=== PATIENT | female | born 1955 | race African-American/Black ===

== ENCOUNTER 2020-10-18 15:43 | Emergency (ER) | payer MEDICAID, SELFPAY ==
[2020-10-18 15:45] VITALS: BP 121/63; PULSE 85; RESP 16; TEMP 37; O2SAT 98; BMI 22.1
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
--- NOTE | 2020-10-18 16:45 | NURSING ---
DR RENTERIA CALLED [facility], CAN'T ACCEPT PATIENT CALLED [facility], TALKED TO MARIN.
--- NOTE | 2020-10-18 16:52 | ED.RN ---
LEFT A MESSAGE FOR [employer] DAPHNE
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
--- NOTE | 2020-10-18 17:05 | EKG12_ITS ---
Test Reason : PRE-OP Blood Pressure : / mmHG Vent. Rate : 073 BPM Atrial Rate : 073 BPM P-R Int : 144 ms QRS Dur : 084 ms QT Int : 386 ms P-R-T Axes : 071 055 074 degrees QTc Int : 425 ms Normal sinus rhythm Normal ECG Confirmed by SAIDA BHAT, JAKE ([id number]), editor newspaper HANNA CRUZ ([id number]) on 10/20/2020 12:37:04 PM Referred By: MARILEE Confirmed By:JAKE CINTRON MD
--- NOTE | 2020-10-18 17:05 | NURSING ---
CALLED [facility], ETA IS 30 MIN
--- NOTE | 2020-10-18 17:06 | ED.RN ---
Addendum entered by Darrick Hughes 10/18/20 17:08: Consent received fro Horace Titus. Original Note: Dr Everett spoke with patients POA and updated on patients condition and transfer to [facility].
[2020-10-18] MEDS: Diphth,Pertuss(Acell),Tet Vac 0.5 ML Vial IM (17:22)
[2020-10-18 17:26] VITALS: BP 145/81; PULSE 75; RESP 16; TEMP 36.5; O2SAT 99
[2020-10-18 17:35] LABS: Absolute Lymphocyte Count 2.38 X10^3/uL (0.83-4.51); Absolute Neutrophil Count 4.3 X10^3/uL (2.0-7.7); Basophil# 0.02 X10^3/uL; Basophil% 0.3 % (0-1); Eosinophil# 0.05 X10^3/uL; Eosinophils% 0.7 % (0-5); Hematocrit 37.6 % (37-47); Hemoglobin 11.9 g/dL (12.0-15.0); Lymphocyte # 2.38 X10^3/ul (0.83-4.51); Mean Corp Hgb Conc 31.6 g/dL (32-36); Mean Corpuscular Hgb 31.1 pg (27.0-32.0); Mean Corpuscular Volume 98.2 fL (81-99); Mean Platelet Vol. 9.6 fl (6.2-12.0); Monocyte# 0.94 X10^3/uL; Monocyte% 12.3 % (0-10); NRBC Flagged by Analyzer 0 % (0-5); Neutrophil # 4.26 X10^3/uL (2.7-7.7); Neutrophil % 55.4 % (47-70); Platelet Count 181 K/mm3 (150-450); RBC Distribution Width CV 14.2 % (11.6-14.6); RBC Distribution Width SD 51.5 fl (35.1-43.9); Red Blood Count 3.83 M/mm3 (4.2-5.4); White Blood Count 7.7 K/mm3 (4.4-11.0)
[2020-10-18 17:45] LABS: Anion Gap 3 (5-15); BUN 26 mg/dL (7-18); BUN/Creat Ratio 30.3 RATIO (10-20); Calcium,Total 9.6 mg/dL (8.5-10.1); Chloride 107 mmol/L (98-107); Creatinine, Serum 0.86 mg/dL (0.55-1.02); EST Glomerular Filtration Rate 71 mL/min (>60); Est Glom Filt Rate - Afr Amer 86 mL/min (>60); Estimated Creatinine Clearance 63.49 ml/min; Glucose 84 mg/dL (74-106); Potassium 4.2 mmol/L (3.5-5.1); Sodium Level 140 mmol/L (136-145)
== END 2020-10-18 17:45 | disposition short-term general hospital (02) ==
LOC: ED 16:47
PROVIDERS: Emergency Provider Emergency Medicine; PCP Family Medicine
DX: S05.31XA Ocular laceration without prolapse or loss of intraocular tissue, right eye, initial encounter (principal); W50.1XXA Accidental kick by another person, initial encounter; Y92.009 Unspecified place in unspecified non-institutional (private) residence as the place of occurrence of the external cause; Y99.9 Unspecified external cause status; Z23 Encounter for immunization; E78.5 Hyperlipidemia, unspecified; F20.0 Paranoid schizophrenia; F31.81 Bipolar II disorder; I10 Essential (primary) hypertension; F17.210 Nicotine dependence, cigarettes, uncomplicated; Z79.82 Long term (current) use of aspirin
CPT/HCPCS: 70450; 70480; 80048; 85025; 87426; 90715; 93005; 99285; A4216

== ENCOUNTER 2021-03-20 04:10 | Outpatient (REF) | payer SELFPAY | END 2021-03-20 23:59 | disposition short-term general hospital (02) | LOC: OLS.AHA 04:10 | PROVIDERS: PCP Family Medicine; Visit Provider Family Medicine | DX: Z51.81 Encounter for therapeutic drug level monitoring (principal); F31.63 Bipolar disorder, current episode mixed, severe, without psychotic features | CPT/HCPCS: 82140 ==

== ENCOUNTER → 2021-05-14 | Outpatient (REF) | payer SELFPAY | END | disposition home or self-care (01) | LOC: OLS.AHA 03:53 | PROVIDERS: PCP Family Medicine; Referring Provider Family Medicine; Visit Provider Family Medicine | DX: F25.9 Schizoaffective disorder, unspecified (principal); Z51.81 Encounter for therapeutic drug level monitoring | CPT/HCPCS: 82140 ==